=== PATIENT | female | born 1980 | race American Indian/Alaskan Native ===

== ENCOUNTER 2020-12-05 07:29 | Emergency (ER) | payer OTHER ==
[2020-12-05] MEDS ORDERED: ASPIRIN 325 MG TAB PO ONE (07:35)
--- NOTE | 2020-12-05 08:05 | Emergency Department Report ---
ED General Adult HPI - General Chief complaint: Chest Pain Stated complaint: CHEST PAINS Time Seen by Provider: 12/05/20 08:01 Source: patient Mode of arrival: Ambulatory Limitations: No Limitations - History of Present Illness Initial comments: 40-year-old female with history of hypertension presenting for evaluation of chest pain. According to the patient this began gradually over the past couple days initially was intermittent but has been more persistent over the past 24 hours. She states that she will occasionally feel short of breath but this is not constant. The pain is described as a pressure or tightness located in the middle of the chest, it does not radiate and there is no associated nausea vomiting or diaphoresis. Nothing really makes it better or worse, it is not exertional, she checked her blood pressure last night and noticed that it was elevated despite compliance with amlodipine and hydrochlorothiazide prescribed by her primary care physician. Denies any pain with breathing, recent travel, oral contraceptive or hormone use or history of DVT or PE. Symptoms are moderate. States they seem to be a little bit better currently than they were during the night. Severity scale (0 -10): 4 - Related Data Allergies Allergy/AdvReac Type Severity Reaction Status Date / Time No Known Allergies Allergy Unverified 12/05/20 07:32 ED Review of Systems ROS: Stated complaint: CHEST PAINS Other details as noted in HPI Comment: All other systems reviewed and negative Constitutional: denies: chills, fever Eyes: denies: eye pain, eye discharge, vision change ENT: denies: ear pain, throat pain Respiratory: shortness of breath. denies: cough, wheezing Cardiovascular: as per HPI, chest pain. denies: palpitations Endocrine: no symptoms reported Gastrointestinal: denies: abdominal pain, nausea, diarrhea Genitourinary: denies: urgency, dysuria, discharge Musculoskeletal: denies: back pain, joint swelling, arthralgia Skin: denies: rash, lesions Neurological: denies: headache, weakness, paresthesias Psychiatric: denies: anxiety, depression Hematological/Lymphatic: denies: easy bleeding, easy bruising ED Past Medical Hx - Past Medical History Hx Hypertension: Yes Hx Asthma: Yes - Surgical History Past Surgical History?: Yes Additional Surgical History: breast reduction, hyst ED Physical Exam - General Limitations: No Limitations General appearance: alert, in no apparent distress - Head Head exam: Present: atraumatic, normocephalic - Eye Eye exam: Present: normal appearance - ENT ENT exam: Present: mucous membranes moist - Neck Neck exam: Present: normal inspection - Respiratory Respiratory exam: Present: normal lung sounds bilaterally. Absent: respiratory distress - Cardiovascular Cardiovascular Exam: Present: regular rate, normal rhythm. Absent: systolic murmur, diastolic murmur, rubs, gallop - GI/Abdominal GI/Abdominal exam: Present: soft, normal bowel sounds - Extremities Exam Extremities exam: Present: normal inspection - Back Exam Back exam: Present: normal inspection - Neurological Exam Neurological exam: Present: alert, oriented X3 - Psychiatric Psychiatric exam: Present: normal affect, normal mood - Skin Skin exam: Present: warm, dry, intact, normal color. Absent: rash ED Course Vital Signs 12/05/20 12/05/20 07:34 08:13 Temperature 98.3 F Pulse Rate 85 76 Respiratory 18 16 Rate Blood Pressure 204/117 150/97 [Right] O2 Sat by Pulse 97 100 Oximetry ED Medical Decision Making - Lab Data Result diagrams: 12/05/20 08:23 12/05/20 08:23 - EKG Data -: EKG Interpreted by Me EKG shows normal: sinus rhythm, axis, intervals, QRS complexes, ST-T waves Rate: normal - Medical Decision Making 40-year-old female with history of hypertension presenting for evaluation of chest pain over the past couple days. She reports that she also noticed that her blood pressure was elevated last evening when she checked it despite compliance with amlodipine and hydrochlorothiazide. She has not previously had a stress test. No pleuritic pain. She states that she has been anxious. She has a normal exam. Differential diagnoses includes acute coronary syndrome, hypertensive related symptoms, stress/anxiety. I do not suspect pulmonary embolism as the patient is PERC negative and has a low risk Wells PE score. I do not suspect aortic dissection given intermittent nature of pain and no radiation. Basic labs including troponin, chest x-ray to be obtained. EKG is normal. Patient's triage blood pressure was markedly elevated however after resting for a few minutes and rechecking her blood pressure was 150/90. Her EKG shows no evidence of acute ischemic change, chest x-ray is unremarkable and labs including troponin are negative. The patient has a low risk heart score of 2. I have recommended blood pressure monitoring and close outpatient cardiology and primary care follow-up. Return precautions to the emergency department were given. - Differential Diagnosis Hypertensive symptoms, ACS, anxiety Critical care attestation.: If time is entered above; I have spent that time in minutes in the direct care of this critically ill patient, excluding procedure time. ED Disposition Clinical Impression: Chest pain Qualifiers: Chest pain type: unspecified Qualified Code(s): R07.9 - Chest pain, unspecified Disposition: DC-01 TO HOME OR SELFCARE Is pt being admited?: No Condition: Good Instructions: Nonspecific Chest Pain, Adult Referrals: LOBO CASTRO MD [Primary Care Provider] - 3-5 Days Forms: Work/School Release Form(ED) Time of Disposition: 09:38 Print Language: SETSWANA
[2020-12-05 08:15] VITALS: BP 150/97
--- NOTE | 2020-12-05 08:23 | XRay Report ---
CHEST 2 VIEWS INDICATION: Chest pain for several days. COMPARISON: None available FINDINGS: Support devices: None. Heart: Within normal limits. Lungs/pleura: No acute air space or interstitial disease. No pneumothorax. Additional findings: None. IMPRESSION: Normal chest x-ray. Signer Name: Norman Amezquita Jr, MD Signed: 12/05/2020 8:18 AM Workstation Name: [id number]
[2020-12-05 08:54] LABS: Basophils # (Auto) 0.1 K/mm3 (0.0-0.1); Basophils % (Auto) 0.7 % (0.0-1.8); Eosinophils # (Auto) 0.3 K/mm3 (0.0-0.4); Hematocrit 34.2 % (30.3-42.9); Hemoglobin 11.1 gm/dl (10.1-14.3); Lymphocytes # (Auto) 2.2 K/mm3 (1.2-5.4); Lymphocytes % (Auto) 27.9 % (13.4-35.0); Mean Corpuscular HGB Conc 33 % (30-34); Mean Corpuscular Volume 72 fl (79-97); Monocytes # (Auto) 0.7 K/mm3 (0.0-0.8); Monocytes % (Auto) 8.8 % (0.0-7.3); Platelet Count 212 K/mm3 (140-440); Red Blood Count 4.73 M/mm3 (3.65-5.03); Red Cell Distribution Width 15.9 % (13.2-15.2)
[2020-12-05 09:22] LABS: Alanine Aminotransferase 9 units/L (7-56); Albumin 3.9 g/dL (3.9-5); Blood Urea Nitrogen 15 mg/dL (7-17); Calcium 8.8 mg/dL (8.4-10.2); Hemolysis Index 7
[2020-12-05 09:24] LABS: BUN/Creatinine Ratio 25
--- NOTE | 2020-12-08 11:38 | Electrocardiograph Report ---
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
== END 2020-12-05 09:53 | disposition home or self-care (01) ==
LOC: ED 07:29
DX: R07.89 Other chest pain (principal); I10 Essential (primary) hypertension; J45.909 Unspecified asthma, uncomplicated; Z98.890 Other specified postprocedural states
CPT/HCPCS: 36415; 71046; 80053; 84484; 85025; 93005; 99284